=== PATIENT | female | born 1950 | race Caucasian/White ===

== ENCOUNTER 2017-06-21 17:22 | Emergency (ER) | payer MEDICARE, OTHER ==
[~2017-06-21] VITALS: Ht 165.1 cm; Wt 121.4 kg
[~2017-06-21 17:22] MED LIST: LISINOPRIL5 MG PO; NITROQUICK0.4 MG SL; PLAVIX 75MG TAB75 MG PO; PRAVASTATIN20 MG PO; SYNTHROID0.125 MG/T PO
[2017-06-21 17:24] VITALS: BP 146/87; TEMP 98.1
[2017-06-21 18:38] VITALS: PULSE 72
== END 2017-06-21 18:39 | disposition home or self-care (01) ==
LOC: COL.ER 17:22
DX: K43.2 Incisional hernia without obstruction or gangrene (principal); E03.9 Hypothyroidism, unspecified; E66.9 Obesity, unspecified; Z87.891 Personal history of nicotine dependence; Z68.41 Body mass index [BMI] 40.0-44.9, adult; Z95.5 Presence of coronary angioplasty implant and graft; Z98.84 Bariatric surgery status; Z90.711 Acquired absence of uterus with remaining cervical stump

== ENCOUNTER 2017-06-29 07:30 | Day surgery (SDC) | payer MEDICARE, OTHER ==
[~2017-06-29] VITALS: Ht 165.1 cm; Wt 121.3 kg
[~2017-06-29 07:30] MED LIST changes: +PRAVACHOL 40MG40 MG PO; -PRAVASTATIN20 MG PO
[2017-06-29 08:26] VITALS: BP 109/72; PULSE 61; TEMP 97.6
[2017-06-29] MEDS ORDERED: NORCO 325 MG-51 TAB PO (10:16)
[2017-06-29 10:19] VITALS: BP 104/46; PULSE 67; TEMP 97.9
[2017-06-29 10:30] VITALS: BP 113/59; PULSE 59
[2017-06-29 10:45] VITALS: BP 118/49; PULSE 56
[2017-06-29 11:00] VITALS: BP 104/53; PULSE 54
[2017-06-29 11:15] VITALS: BP 110/57; PULSE 52
== END 2017-06-29 13:00 | disposition home or self-care (01) ==
LOC: SDCO 07:30
DX: K43.0 Incisional hernia with obstruction, without gangrene (principal); Z98.84 Bariatric surgery status; E66.9 Obesity, unspecified; G47.33 Obstructive sleep apnea (adult) (pediatric); I25.10 Atherosclerotic heart disease of native coronary artery without angina pectoris; Z95.5 Presence of coronary angioplasty implant and graft; E03.9 Hypothyroidism, unspecified; Z88.8 Allergy status to other drugs, medicaments and biological substances; Z87.891 Personal history of nicotine dependence
CPT/HCPCS: C1781; J0690; J2270; J2704; J3010; J7120